=== PATIENT | male | born 1975 | race American Indian/Alaskan Native ===

== ENCOUNTER 2022-12-19 13:39 | Emergency (ER) | payer SELFPAY ==
[~2022-12-19] VITALS: Ht 165.1 cm; Wt 79.5 kg
[~2022-12-19 13:39] MED LIST: FEXO180T PO
[2022-12-19 13:45] VITALS: TEMP 98.8
[2022-12-19] MEDS ORDERED: HYDROCODONE/ACETAMINOPHEN 5-325 MG TABLET PO ONE (14:15)
[2022-12-19] MEDS ORDERED: IBUPROFEN 600 MG TABLET PO ONE (14:15)
[2022-12-19] MEDS ORDERED: IBUP-1554 PO (15:49)
[2022-12-19] MEDS ORDERED: HYDR-4072 PO ×3 (15:49→16:48)
[2022-12-19] MEDS ORDERED: POLY238P PO (15:49)
[2022-12-19 16:19] VITALS: BP 118/68; PULSE 78; RESP 18
== END 2022-12-19 16:23 | disposition home or self-care (01) ==
LOC: EMS 13:44
DX: S92.412A Displaced fracture of proximal phalanx of left great toe, initial encounter for closed fracture (principal); F17.210 Nicotine dependence, cigarettes, uncomplicated; F12.90 Cannabis use, unspecified, uncomplicated; W22.8XXA Striking against or struck by other objects, initial encounter; Y93.01 Activity, walking, marching and hiking; Y92.89 Other specified places as the place of occurrence of the external cause; Y99.8 Other external cause status
CPT/HCPCS: 99283